=== PATIENT | female | born 1965 | race Caucasian/White ===

== ENCOUNTER 2018-05-07 03:20 | Emergency (ER) | payer OTHER ==
[~2018-05-07] VITALS: Ht 162.6 cm; Wt 88.5 kg
[2018-05-07] MEDS ORDERED: Requip3 MG PO (03:50)
[2018-05-07] MEDS ORDERED: COMPAZINE10 MG PO (03:50)
[2018-05-07] MEDS ORDERED: CYCL10 PO (03:51)
[2018-05-07] MEDS ORDERED: TYLECOD3 PO (03:52)
[2018-05-07] MEDS ORDERED: Oxazepam10 MG PO (03:52)
[2018-05-07] MEDS ORDERED: Estradiol1 MG PO (03:53)
[2018-05-07] MEDS ORDERED: PRED5 PO (03:53)
[2018-05-07] MEDS ORDERED: Acetaminophen-1 EAC1 PO (04:33)
== END 2018-05-07 04:40 | disposition home or self-care (01) ==
LOC: ER 03:20
DX: S39.011A Strain of muscle, fascia and tendon of abdomen, initial encounter (principal); M16.12 Unilateral primary osteoarthritis, left hip; W18.40XA Slipping, tripping and stumbling without falling, unspecified, initial encounter; Z88.0 Allergy status to penicillin; Z88.1 Allergy status to other antibiotic agents; Z79.899 Other long term (current) drug therapy; Z79.52 Long term (current) use of systemic steroids; F17.200 Nicotine dependence, unspecified, uncomplicated
CPT/HCPCS: 73502